=== PATIENT | female | born 1985 | race African-American/Black ===

== ENCOUNTER 2024-02-11 10:41 | Emergency (ER) | payer MEDICAID ==
[~2024-02-11] VITALS: Ht 167.6 cm; Wt 72.0 kg
[2024-02-11 10:54] VITALS: BP 168/78; PULSE 58; RESP 20; TEMP 98.4; O2SAT 99
== END 2024-02-11 18:01 | disposition left against medical advice (07) ==
LOC: ER 10:41
DX: R11.2 Nausea with vomiting, unspecified (principal); D57.1 Sickle-cell disease without crisis; F12.90 Cannabis use, unspecified, uncomplicated; Z88.8 Allergy status to other drugs, medicaments and biological substances; Z98.890 Other specified postprocedural states
CPT/HCPCS: 99283